=== PATIENT | female | born 1980 | race Caucasian/White ===

== ENCOUNTER 2022-01-06 14:27 | Emergency (ER) | payer OTHER ==
[~2022-01-06] VITALS: Ht 160 cm; Wt 79.8 kg
== END 2022-01-06 17:21 | disposition home or self-care (01) ==
LOC: ER 14:27
DX: R30.0 Dysuria (principal); R10.2 Pelvic and perineal pain

== ENCOUNTER 2025-05-04 05:37 | Emergency (ER) | payer OTHER ==
[~2025-05-04] VITALS: Ht 160 cm; Wt 99.8 kg
[2025-05-04 05:46] VITALS: BP 138/85; O2SAT 98
[2025-05-04] MEDS ORDERED: KETOROLAC TROMETHAMINE 60 MG VIAL IM STA (06:41)
== END 2025-05-04 12:47 | disposition home or self-care (01) ==
LOC: ER 05:37
DX: G44.209 Tension-type headache, unspecified, not intractable (principal); J32.9 Chronic sinusitis, unspecified